=== PATIENT | female | born 1970 | race Caucasian/White ===

== ENCOUNTER 2019-07-18 00:11 | Emergency (ER) | payer BC ==
--- NOTE | 2019-07-18 00:38 | EDM.PDOC ---
ED HPI GENERAL MEDICAL PROBLEM - General Chief Complaint: General Stated Complaint: NECK AND SHOULDER PAIN Time Seen by Provider: 07/18/19 00:28 - History of Present Illness INITIAL COMMENTS - FREE TEXT/NARRATIVE: 48-year-old female presents to the emergency room with neck and shoulder pain. Patient is a neck surgery 2 level fusion and left shoulder surgery in the past. Over the last week and a half or so she is developed significant muscle tightness between her left shoulder and her neck. This is causing her quite a bit of difficulty. At times she gets some nausea with this and is even has some intermittent dizziness. She does have a history of benign positional vertigo. Patient has not had any fevers or chills she has had no pain extending down into her arms. Patient denies any other complaints at this time she has no cough congestion or fever. Left Shoulder Pain Score (Numeric/FACES): 10 - Related Data Allergies Allergy/AdvReac Type Severity Reaction Status Date / Time codeine Allergy Severe Cannot Verified 07/18/19 00:30 Remember metronidazole [From Flagyl] Allergy Severe Cannot Verified 07/18/19 00:30 Remember naproxen Allergy Severe Cannot Verified 07/18/19 00:30 Remember Home Meds: Home Meds Ascorbic Acid [Vitamin C] 1 tab PO DAILY 07/18/19 [History] Cholecalciferol (Vitamin D3) [Vitamin D] 1 tab PO DAILY 07/18/19 [History] L.acidoph,Paracasei, B.lactis [Probiotic] 1 each PO DAILY 07/18/19 [History] Multivitamins [Tab-A-Clare] 1 tab PO DAILY 07/18/19 [History] [place]-3/DHA/Epa/Fish Oil [[place] 3 500 Softgel] 1 tab PO DAILY 07/18/19 [History] Ondansetron [Zofran ODT] 4 mg PO Q6H PRN #12 tab.dis 07/18/19 [Rx] ED ROS GENERAL - Review of Systems Review Of Systems: See Below Constitutional: Reports: No Symptoms HEENT: Reports: No Symptoms Respiratory: Reports: No Symptoms Cardiovascular: Reports: No Symptoms GI/Abdominal: Reports: Nausea. Denies: Abdominal Pain, Constipation, Diarrhea, Vomiting : Reports: No Symptoms Musculoskeletal: Reports: No Symptoms Skin: Reports: No Symptoms Neurological: Reports: No Symptoms Psychiatric: Reports: No Symptoms ED EXAM, GENERAL - Physical Exam Exam: See Below Exam Limited By: No Limitations General Appearance: Alert, No Apparent Distress Head: Atraumatic, Normocephalic Neck: Other (Has marked spasm in the musculature on the left side involving the left paraspinous muscles down the cervical neck and into the upper thoracic region she has tenderness around her shoulder blade and into her left shoulder. Palpation here elicits the symptoms that brought her in.). No: Lymphadenopathy (L), Lymphadenopathy (R), Tender Lateral, Tender Midline Respiratory/Chest: No Respiratory Distress, Lungs Clear, Normal Breath Sounds Cardiovascular: Regular Rate, Rhythm, No Edema, No Murmur GI/Abdominal: Normal Bowel Sounds, Soft, Non-Tender Back Exam: Normal Inspection. No: CVA Tenderness (L), CVA Tenderness (R) Course - Vital Signs Last Recorded V/S: Last Vital Signs Temp 36.7 C 07/18/19 00:23 Pulse 97 07/18/19 00:23 Resp 20 07/18/19 00:23 BP 143/86 H 07/18/19 00:23 Pulse Ox 100 07/18/19 00:23 - Orders/Labs/Meds Orders: Active Orders 24 hr Category Date Time Status EKG Documentation Completion [RC] STAT Care 07/18/19 00:45 Active Chest 1V Frontal [CR] Stat Exams 07/18/19 00:45 Taken Labs: Laboratory Tests 07/18/19 07/18/19 07/18/19 Range/Units 01:05 01:05 01:05 WBC 6.50 (3.98-10.04) K/mm3 RBC 4.61 (3.98-5.22) M/mm3 Hgb 13.6 (11.2-15.7) gm/dl Hct 42.1 (34.1-44.9) % MCV 91.3 (79.4-94.8) fl MCH 29.5 (25.6-32.2) pg MCHC 32.3 (32.2-35.5) g/dl RDW Std Deviation 44.5 (36.4-46.3) fL Plt Count 181 L (182-369) K/mm3 MPV 13.0 H (9.4-12.3) fl Neutrophils % (Manual) 39 L (40-60) % Band Neutrophils % 2 (0-10) % Lymphocytes % (Manual) 46 H (20-40) % Atypical Lymphs % 6 % Monocytes % (Manual) 7 (2-10) % Eosinophils % (Manual) 0 L (0.7-5.8) % Basophils % (Manual) 0 L (0.1-1.2) Platelet Estimate Adequate Plt Morphology Comment Normal RBC Morph Comment Normal PT 10.0 (9.7-12.0) SECONDS INR < 0.93 APTT 25 (22-31) SECONDS D-Dimer, Quantitative 0.19 (0.19-0.50) mg/L Troponin I < 0.017 (0.00-0.056) ng/mL Lipase 97 (73-393) U/L Meds: Medications Discontinued Medications Generic Name Dose Route Start Last Admin Trade Name Freq PRN Reason Stop Dose Admin Ondansetron HCl 4 mg 07/18/19 00:47 07/18/19 01:12 Zofran IVPUSH 07/18/19 00:48 Not Given ONETIME ONE Ondansetron HCl 4 mg 07/18/19 01:06 07/18/19 01:15 Zofran Odt PO 07/18/19 01:07 4 mg ONETIME ONE Administration - Re-Assessments/Exams Free Text/Narrative Re-Assessment/Exam: 07/18/19 04:42 She was actually able to get some sleep here that her nausea was relieved with Zofran. Her d-dimer and troponin were negative. Discussed the findings of everything with the patient she does not tolerate muscle relaxants and is leery of taking anything sedating. She does not tolerate naproxen however she does okay with ibuprofen she has a history of using excessive ibuprofen in the past and this caused some stomach upset. But she will use some [id number] ibuprofen to help her neck tightness and discomfort as well as her shoulder tightness and discomfort. She will use famotidine, or Pepcid 20 mg twice daily while on the ibuprofen. Departure - Departure Time of Disposition: 04:43 Disposition: Home, Self-Care 01 Clinical Impression: Torticollis - Discharge Information Prescriptions: Ondansetron [Zofran ODT] 4 mg PO Q6H PRN #12 tab.dis PRN Reason: Nausea Instructions: Acute Torticollis, Adult Referrals: Rafaela Bonilla MD [Primary Care Provider] - Forms: ED Department Discharge Additional Instructions: Return to the emergency room with any questions problems or worsening symptoms. Follow-up with your regular provider in 1 week if needed. 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 These come in 20 mg tablets take 1 twice daily while taking the ibuprofen. You have been given a prescription for Zofran No. 12, 4 mg use 1 every 6 hours as needed for nausea and dizziness Sepsis Event Note - Evaluation Sepsis Screening Result: No Definite Risk - Focused Exam Vital Signs: Vital Signs Temp Pulse Resp BP Pulse Ox 07/18/19 00:23 36.7 C 97 20 143/86 H 100 Date Exam was Performed: 07/18/19 Time Exam was Performed: 05:01 - My Orders Last 24 Hours: My Active Orders 07/18/19 00:45 EKG Documentation Completion [RC] STAT Chest 1V Frontal [CR] Stat - Assessment/Plan Last 24 Hours: My Active Orders 07/18/19 00:45 EKG Documentation Completion [RC] STAT Chest 1V Frontal [CR] Stat
[2019-07-18] MEDS ORDERED: Ondansetron 4 MG/2 ML SDV IVPUSH ONE (00:47)
[2019-07-18] MEDS ORDERED: Ondansetron 4 MG Tab.DIS PO ONE (01:06)
--- NOTE | 2019-07-18 06:32 | CR ---
Chest: Portable view of the chest was obtained. Comparison: No prior chest imaging is available. Heart size and mediastinum are normal. Lungs are clear with no acute parenchymal change. Bony structures are grossly intact. Surgical clip is noted within the upper right abdomen. Impression: 1. Nothing acute is seen on portable chest x-ray. Diagnostic code #1 This report was dictated in MDT
== END 2019-07-18 05:03 | disposition home or self-care (01) ==
LOC: JD.ED 00:11
DX: M43.6 Torticollis (principal); Z88.5 Allergy status to narcotic agent; Z88.1 Allergy status to other antibiotic agents; Z88.6 Allergy status to analgesic agent
CPT/HCPCS: 36415; 71045; 83690; 84484; 85007; 85027; 85379; 85610; 85730; 93005; 99284; A9270; 93010; 99282

== ENCOUNTER 2019-08-08 12:30 | Emergency (ER) | payer BC ==
[2019-08-08] MEDS ORDERED: Sodium Chloride 0.9% 10 ML Syringe FLUSH PRN (12:58)
--- NOTE | 2019-08-08 13:26 | CR ---
Chest: 2 views of the chest were obtained. Comparison: Previous chest x-ray of 07/18/19. Heart size and mediastinum are normal. Lungs are clear with no acute parenchymal change. Bony structures are unremarkable. Surgical clips are seen from prior cholecystectomy. Partially visualized previous cervical spine surgery is also noted. Impression: 1. Nothing acute is seen on 2 view chest x-ray. Diagnostic code #2 This report was dictated in MDT
--- NOTE | 2019-08-08 14:09 | EDM.PDOC ---
ED HPI GENERAL MEDICAL PROBLEM - General Chief Complaint: Chest Pain Stated Complaint: CHEST PAIN, NAUSEA AND NECK PAIN COMES AND GOES Time Seen by Provider: 08/08/19 12:42 Source of Information: Reports: Patient History Limitations: Reports: No Limitations - History of Present Illness INITIAL COMMENTS - FREE TEXT/NARRATIVE: The patient presents with chest pain. This started a couple nights ago. She said about 2 weeks ago she was here for severe left neck pain. That is better but now she has the left chest pain. The pain is sharp and made worse by taking a deep breath. She has no fever, chills, cough, congestion, runny nose, abdominal pain, nausea or vomiting. She has no history of heart problems. She has no hypertension, hypercholesterolemia, or diabetes. She does not smoke. Onset: Sudden Duration: Day(s): (Yesterday) Location: Reports: Chest Quality: Reports: Sharp Severity: Severe Improves with: Reports: Immobilization Worsens with: Reports: Breathing, Movement Associated Symptoms: Reports: Chest Pain. Denies: Cough, Fever/Chills, Headaches, Nausea/Vomiting, Shortness of Breath Mid-Sternal Chest Pain Score (Numeric/FACES): 10 - Related Data Allergies Allergy/AdvReac Type Severity Reaction Status Date / Time codeine Allergy Severe Cannot Verified 08/08/19 12:39 Remember metronidazole [From Flagyl] Allergy Severe Cannot Verified 08/08/19 12:39 Remember naproxen Allergy Severe Cannot Verified 08/08/19 12:39 Remember Home Meds: Home Meds Ascorbic Acid [Vitamin C] 1 tab PO DAILY 07/18/19 [History] Cholecalciferol (Vitamin D3) [Vitamin D] 5,000 intnl unit PO DAILY 07/18/19 [History] L.acidoph,Paracasei, B.lactis [Probiotic] 1 each PO DAILY 07/18/19 [History] Multivitamins [Tab-A-Clare] 1 tab PO DAILY 07/18/19 [History] [place]-3/DHA/Epa/Fish Oil [[place] 3 500 Softgel] 1 tab PO DAILY 07/18/19 [History] Ondansetron [Zofran ODT] 4 mg PO Q6H PRN #12 tab.dis 07/18/19 [Rx] traMADol [Ultram] 50 - 100 mg PO Q6H PRN #20 tab 08/08/19 [Rx] Past Medical History HEENT History: Reports: Impaired Vision Other HEENT History: ready eyeglasses Respiratory History: Reports: Bronchitis, Recurrent Gastrointestinal History: Reports: Diverticulosis Genitourinary History: Reports: Pyelonephritis, UTI, Recurrent 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 - Infectious Disease History Infectious Disease History: Reports: Chicken Pox, Measles, Mumps - Past Surgical History HEENT Surgical History: Reports: LASIK GI Surgical History: Reports: Appendectomy, Cholecystectomy Musculoskeletal Surgical History: Reports: Shoulder Surgery, Other (See Below) Other Musculoskeletal Surgeries/Procedures:: neck surgery Social & Family History - Tobacco Use Smoking Status *Q: Never Smoker Second Hand Smoke Exposure: No - Caffeine Use Caffeine Use: Reports: Soda - Recreational Drug Use Recreational Drug Use: No ED ROS GENERAL - Review of Systems Review Of Systems: See Below Constitutional: Reports: No Symptoms HEENT: Reports: No Symptoms Respiratory: Reports: No Symptoms Cardiovascular: Reports: Chest Pain Endocrine: Reports: No Symptoms GI/Abdominal: Reports: No Symptoms, Mucous in Stool Musculoskeletal: Reports: No Symptoms ED EXAM, GENERAL - Physical Exam Exam: See Below Exam Limited By: No Limitations General Appearance: Alert, No Apparent Distress Ears: Normal External Exam Nose: Normal Inspection Head: Atraumatic, Normocephalic Neck: Normal Inspection, Supple, Non-Tender Respiratory/Chest: No Respiratory Distress, Lungs Clear, Normal Breath Sounds Cardiovascular: Regular Rate, Rhythm, No Edema, No Murmur GI/Abdominal: Soft, Non-Tender, No Organomegaly, No Mass Back Exam: Normal Inspection Extremities: Normal Inspection EKG INTERPRETATION EKG Date: 08/08/19 Time: 13:15 Rhythm: NSR Rate (Beats/Min): 84 [place]: Normal P-Wave: Present QRS: Normal ST-T: Normal QT: Normal Course - Vital Signs Last Recorded V/S: Last Vital Signs Temp 98.3 F 08/08/19 12:30 Pulse 98 08/08/19 12:30 Resp 20 08/08/19 12:30 BP 134/89 08/08/19 12:30 Pulse Ox 99 08/08/19 12:30 - Orders/Labs/Meds Orders: Active Orders 24 hr Category Date Time Status Cardiac Monitoring [RC] . DIRECTED Care 08/08/19 12:58 Active EKG Documentation Completion [RC] STAT Care 08/08/19 13:00 Active Peripheral IV Care [RC] . DIRECTED Care 08/08/19 13:00 Active Sodium Chloride 0.9% [Saline Flush] Med 08/08/19 12:58 Active 10 ml FLUSH ASDIRECTED PRN Peripheral IV Insertion Adult [OM.PC] Stat Oth 08/08/19 12:58 Ordered Medication Orders Sodium Chloride (Saline Flush) 10 ml FLUSH ASDIRECTED PRN PRN Reason: Keep Vein Open Last Admin: 08/08/19 12:40 Dose: 10 ml Documented by: CHRIS Labs: Laboratory Tests 08/08/19 08/08/19 08/08/19 Range/Units 12:40 12:40 12:40 WBC 8.58 (3.98-10.04) K/mm3 RBC 4.83 (3.98-5.22) M/mm3 Hgb 14.5 (11.2-15.7) gm/dl Hct 44.0 (34.1-44.9) % MCV 91.1 (79.4-94.8) fl MCH 30.0 (25.6-32.2) pg MCHC 33.0 (32.2-35.5) g/dl RDW Std Deviation 42.1 (36.4-46.3) fL Plt Count 159 L (182-369) K/mm3 MPV 12.6 H (9.4-12.3) fl Neut % (Auto) 62.4 (34.0-71.1) % Lymph % (Auto) 28.1 (19.3-51.7) % [place] % (Auto) 8.4 (4.7-12.5) % Eos % (Auto) 0.8 (0.7-5.8) Baso % (Auto) 0.2 (0.1-1.2) % Neut # (Auto) 5.35 (1.56-6.13) K/mm3 Lymph # (Auto) 2.41 (1.18-3.74) K/mm3 [place] # (Auto) 0.72 H (0.24-0.36) K/mm3 Eos # (Auto) 0.07 (0.04-0.36) K/mm3 Baso # (Auto) 0.02 (0.01-0.08) K/mm3 D-Dimer, Quantitative 0.27 (0.19-0.50) mg/L Sodium 139 (136-145) mEq/L Potassium 3.8 (3.5-5.1) mEq/L Chloride 103 (98-107) mEq/L Carbon Dioxide 28 (21-32) mEq/L Anion Gap 11.8 (5-15) BUN 11 (7-18) mg/dL Creatinine 0.8 (0.55-1.02) mg/dL Est Cr Clr Drug Dosing 84.87 mL/min Estimated GFR (MDRD) > 60 (>60) mL/min BUN/Creatinine Ratio 13.8 L (14-18) Glucose 90 (74-106) mg/dL Calcium 10.7 H (8.5-10.1) mg/dL Total Bilirubin 0.6 (0.2-1.0) mg/dL AST 17 (15-37) U/L ALT 28 (14-59) U/L Alkaline Phosphatase 102 (46-116) U/L Troponin I < 0.017 (0.00-0.056) ng/mL Total Protein 8.2 (6.4-8.2) g/dl Albumin 4.5 (3.4-5.0) g/dl Globulin 3.7 gm/dL Albumin/Globulin Ratio 1.2 (1-2) Meds: Medications Generic Name Dose Route Start Last Admin Trade Name Freq PRN Reason Stop Dose Admin Sodium Chloride 10 ml 08/08/19 12:58 08/08/19 12:40 Saline Flush FLUSH 10 ml ASDIRECTED PRN Administration Keep Vein Open - Re-Assessments/Exams Free Text/Narrative Re-Assessment/Exam: 08/08/19 14:08 I ordered an IV saline lock, EKG, CXR and labs. Her EKG shows a NSR with no acute changes. Her CXR looks good. Her CBC and CMP look good. Her troponin is negative. 08/08/19 14:21 I feel this is pleurisy. I will have her take advil and I will give her some ultram for any breath through pain. Departure - Departure Time of Disposition: 14:30 Disposition: Home, Self-Care 01 Condition: Good Clinical Impression: Pleurisy Prescriptions: traMADol [Ultram] 50 - 100 mg PO Q6H PRN #20 tab PRN Reason: Pain Referrals: Rafaela Bonilla MD [Primary Care Provider] - 1 Week Forms: ED Department Discharge Additional Instructions: Take advil every 6 hours as needed for pain. Take the ultram as needed for pain. Follow up with Dr Ray. Please return if you are worse. Sepsis Event Note (ED) - Evaluation Sepsis Screening Result: No Definite Risk - Focused Exam Vital Signs: Vital Signs Temp Pulse Resp BP Pulse Ox 08/08/19 12:30 98.3 F 98 20 134/89 99 - My Orders Last 24 Hours: My Active Orders 08/08/19 12:58 Cardiac Monitoring [RC] . DIRECTED Sodium Chloride 0.9% [Saline Flush] 10 ml FLUSH ASDIRECTED PRN Peripheral IV Insertion Adult [OM.PC] Stat 08/08/19 13:00 EKG Documentation Completion [RC] STAT Peripheral IV Care [RC] . DIRECTED - Assessment/Plan Last 24 Hours: My Active Orders 08/08/19 12:58 Cardiac Monitoring [RC] . DIRECTED Sodium Chloride 0.9% [Saline Flush] 10 ml FLUSH ASDIRECTED PRN Peripheral IV Insertion Adult [OM.PC] Stat 08/08/19 13:00 EKG Documentation Completion [RC] STAT Peripheral IV Care [RC] . DIRECTED
== END 2019-08-08 15:00 | disposition home or self-care (01) ==
LOC: JD.ED 12:30
DX: R09.1 Pleurisy (principal); Z88.5 Allergy status to narcotic agent; Z88.8 Allergy status to other drugs, medicaments and biological substances
CPT/HCPCS: 36415; 71046; 71046-26; 80053; 84484; 85025; 85379; 93005; 93010; 99283; 99285-25

== ENCOUNTER 2019-08-25 11:12 | Emergency (ER) | payer BC ==
[2019-08-25] MEDS ORDERED: Sodium Chloride 0.9% 10 ML Syringe FLUSH PRN (11:30)
--- NOTE | 2019-08-25 12:11 | CT ---
CT chest Technique: Multiple axial sections through the chest were obtained. Intravenous contrast was utilized. Study has been performed as a pulmonary angiogram protocol. Comparison: Prior chest x-ray of 08/08/19, no previous chest CT is available. Findings: Cyst noted within the right lobe of the liver measuring about 2.0 cm. Other visualized upper abdominal structures shows no discrete abnormality. No pericardial thickening is seen. Minimal coronary artery calcification is noted. Aorta shows no aneurysm. No aortic dissection is seen. Pulmonary arteries are well opacified. No filling defects are seen to indicate pulmonary embolism. Mediastinum and hilar region show no adenopathy. No axillary adenopathy is seen. Bone window settings were reviewed. No acute osseous finding is appreciated. Prior cervical spine surgery is partially visualized. Lungs show no acute parenchymal change. No pleural effusions are seen. Impression: 1. No findings of pulmonary embolism. 2. Other findings which are nonacute as described above. Diagnostic code #2 This report was dictated in MDT
--- NOTE | 2019-08-25 12:40 | EDM.PDOC ---
ED HPI GENERAL MEDICAL PROBLEM - General Chief Complaint: Neck Problem Stated Complaint: NECK AND SHOULDER PAIN/ PAIN WHILE BREATHING Time Seen by Provider: 08/25/19 11:23 Source of Information: Reports: Patient History Limitations: Reports: No Limitations - History of Present Illness INITIAL COMMENTS - FREE TEXT/NARRATIVE: The patient presents with left neck, chest and shoulder pain. This has been an ongoing problems for a few months. This is her 3rd visit here. She was put on prednisone at one time for pleurisy. She developed diverticulitis after that and was on antibiotics. She has been to PT and that did help but the pain is back again. She has no fever, chills or cough. She has no numbness or weakness. She has no abdominal pain, nausea or vomiting. She has no history of heart disease. Onset: Gradual Duration: Hour(s): Location: Reports: Neck, Chest, Upper Extremity, Left (shoulder) Quality: Reports: Sharp Severity: Moderate Improves with: Reports: None Worsens with: Reports: None Associated Symptoms: Reports: Chest Pain. Denies: Cough, Fever/Chills, Headaches, Nausea/Vomiting, Shortness of Breath Left Neck Pain Score (Numeric/FACES): 7 - Related Data Allergies Allergy/AdvReac Type Severity Reaction Status Date / Time codeine Allergy Severe Cannot Verified 08/08/19 12:39 Remember metronidazole [From Flagyl] Allergy Severe Cannot Verified 08/08/19 12:39 Remember naproxen Allergy Severe Cannot Verified 08/08/19 12:39 Remember Home Meds: Home Meds Ascorbic Acid [Vitamin C] 1 tab PO DAILY 07/18/19 [History] Cholecalciferol (Vitamin D3) [Vitamin D] 5,000 intnl unit PO DAILY 07/18/19 [History] L.acidoph,Paracasei, B.lactis [Probiotic] 1 each PO DAILY 07/18/19 [History] Multivitamins [Tab-A-Clare] 1 tab PO DAILY 07/18/19 [History] [place]-3/DHA/Epa/Fish Oil [[place] 3 500 Softgel] 1 tab PO DAILY 07/18/19 [History] Ondansetron [Zofran ODT] 4 mg PO Q6H PRN #12 tab.dis 07/18/19 [Rx] predniSONE [Prednisone] 40 mg PO DAILY #10 tablet 08/08/19 [Rx] traMADol [Ultram] 50 - 100 mg PO Q6H PRN #20 tab 08/08/19 [Rx] Past Medical History HEENT History: Reports: Impaired Vision Other HEENT History: ready eyeglasses Respiratory History: Reports: Bronchitis, Recurrent Gastrointestinal History: Reports: Diverticulosis Genitourinary History: Reports: Pyelonephritis, UTI, Recurrent [employer] 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 - Infectious Disease History Infectious Disease History: Reports: Chicken Pox, Measles, Mumps - Past Surgical History HEENT Surgical History: Reports: LASIK GI Surgical History: Reports: Appendectomy, Cholecystectomy Musculoskeletal Surgical History: Reports: Shoulder Surgery, Other (See Below) Other Musculoskeletal Surgeries/Procedures:: neck surgery Social & Family History - Family History Family Medical History: Noncontributory - Tobacco Use Smoking Status *Q: Never Smoker Second Hand Smoke Exposure: No - Caffeine Use Caffeine Use: Reports: Soda ED ROS GENERAL - Review of Systems Review Of Systems: See Below Constitutional: Reports: No Symptoms HEENT: Reports: No Symptoms Respiratory: Reports: No Symptoms Cardiovascular: Reports: Chest Pain Endocrine: Reports: No Symptoms GI/Abdominal: Reports: No Symptoms : Reports: No Symptoms Musculoskeletal: Reports: Neck Pain Skin: Reports: No Symptoms ED EXAM, UPPER BACK/NECK PAIN - Physical Exam Exam: See Below Exam Limited By: No Limitations General Appearance: Alert, No Apparent Distress Ears Exam: Normal External Exam Nose Exam: Normal Inspection Head Exam: Atraumatic, Normocephalic Neck Exam: Other (Mild pain upon palpation to the left trapezious) Cardiovascular/Respiratory: Regular Rate, Rhythm, No M/R/G, Normal Peripheral Pulses, No JVD GI/Abdominal: Soft, Non-Tender, No Organomegaly, No Mass Back Exam: Normal Inspection Extremities: Normal Inspection Neurologic: No Motor/Sensory Deficits, Alert, Oriented x 3 EKG INTERPRETATION EKG Date: 08/25/19 Time: 11:58 Rhythm: NSR Rate (Beats/Min): 81 Bison: Normal P-Wave: Present QRS: Normal ST-T: Normal QT: Normal Course - Vital Signs Last Recorded V/S: Last Vital Signs Temp 96.9 F 08/25/19 11:23 Pulse 103 H 08/25/19 11:23 Resp 16 08/25/19 11:23 BP 137/88 08/25/19 11:23 Pulse Ox 100 08/25/19 11:23 - Orders/Labs/Meds Orders: Active Orders 24 hr Category Date Time Status Cardiac Monitoring [RC] . DIRECTED Care 08/25/19 11:30 Active EKG Documentation Completion [RC] STAT Care 08/25/19 11:30 Active Peripheral IV Care [RC] . DIRECTED Care 08/25/19 11:31 Active SEDIMENTATION RATE AUTO [HEME] Stat Lab 08/25/19 11:45 Received Sodium Chloride 0.9% [Saline Flush] Med 08/25/19 11:30 Active 10 ml FLUSH ASDIRECTED PRN Peripheral IV Insertion Adult [OM.PC] Stat Oth 08/25/19 11:30 Ordered Medication Orders Sodium Chloride (Saline Flush) 10 ml FLUSH ASDIRECTED PRN PRN Reason: Keep Vein Open Last Admin: 08/25/19 12:13 Dose: 10 ml Documented by: GIFTY Labs: Laboratory Tests 08/25/19 08/25/19 Range/Units 11:45 11:45 WBC 9.14 (3.98-10.04) K/mm3 RBC 4.59 (3.98-5.22) M/mm3 Hgb 13.7 (11.2-15.7) gm/dl Hct 41.9 (34.1-44.9) % MCV 91.3 (79.4-94.8) fl MCH 29.8 (25.6-32.2) pg MCHC 32.7 (32.2-35.5) g/dl RDW Std Deviation 42.0 (36.4-46.3) fL Plt Count 203 (182-369) K/mm3 MPV 12.2 (9.4-12.3) fl Neut % (Auto) 71.2 H (34.0-71.1) % Lymph % (Auto) 18.2 L (19.3-51.7) % [place] % (Auto) 9.1 (4.7-12.5) % Eos % (Auto) 1.1 (0.7-5.8) Baso % (Auto) 0.2 (0.1-1.2) % Neut # (Auto) 6.51 H (1.56-6.13) K/mm3 Lymph # (Auto) 1.66 (1.18-3.74) K/mm3 [place] # (Auto) 0.83 H (0.24-0.36) K/mm3 Eos # (Auto) 0.10 (0.04-0.36) K/mm3 Baso # (Auto) 0.02 (0.01-0.08) K/mm3 Manual Slide Review Not Reportable Sodium 140 (136-145) mEq/L Potassium 3.8 (3.5-5.1) mEq/L Chloride 102 (98-107) mEq/L Carbon Dioxide 28 (21-32) mEq/L Anion Gap 13.8 (5-15) BUN 9 (7-18) mg/dL Creatinine 0.8 (0.55-1.02) mg/dL Est Cr Clr Drug Dosing 84.87 mL/min Estimated GFR (MDRD) > 60 (>60) mL/min BUN/Creatinine Ratio 11.3 L (14-18) Glucose 111 H (74-106) mg/dL Calcium 9.1 D (8.5-10.1) mg/dL Total Bilirubin 0.3 (0.2-1.0) mg/dL AST 20 (15-37) U/L ALT 38 (14-59) U/L Alkaline Phosphatase 86 (46-116) U/L Troponin I < 0.017 (0.00-0.056) ng/mL C-Reactive Protein 2.1 H* (<1.0) mg/dL Total Protein 7.7 (6.4-8.2) g/dl Albumin 3.6 (3.4-5.0) g/dl Globulin 4.1 gm/dL Albumin/Globulin Ratio 0.9 L (1-2) Meds: Medications Generic Name Dose Route Start Last Admin Trade Name Freq PRN Reason Stop Dose Admin Sodium Chloride 10 ml 08/25/19 11:30 08/25/19 12:13 Saline Flush FLUSH 10 ml ASDIRECTED PRN Administration Keep Vein Open - Re-Assessments/Exams Free Text/Narrative Re-Assessment/Exam: 08/25/19 13:10 I ordered an IV saline lock, EKG, labs and a CT of her chest. Her EKG shows a NSR with no acute changes. Her CBC and CMP look good. Her troponin is negative. Her CT shows no findings of pulmonary embolism. Other findings which are nonacute. At this time it is not clear why she is having the pain. Her heart and lungs look good. I wonder if this is coming from her cervical spine She does have some tingling and numbness in her left arm at times. I will put in an order for an MRI or her cervical spine. Departure - Departure Time of Disposition: 13:15 Disposition: Home, Self-Care 01 Condition: Good Clinical Impression: Atypical chest pain, Neck pain Shoulder pain Qualifiers: Chronicity: acute Laterality: left Qualified Code(s): M25.512 - Pain in left shoulder - Discharge Information *PRESCRIPTION DRUG MONITORING PROGRAM REVIEWED*: Not Applicable *COPY OF PRESCRIPTION DRUG MONITORING REPORT IN PATIENT GUERRERO: Not Applicable Referrals: Rafaela Bonilla MD [Primary Care Provider] - 1 Week Forms: ED Department Discharge Additional Instructions: Take the ultram as needed for pain. I have put an order in for an MRI of your cervical spine. Someone from our radiology department will call you. Follow up with your doctor. Please return if you are worse. Sepsis Event Note (ED) - Evaluation Sepsis Screening Result: No Definite Risk - Focused Exam Vital Signs: Vital Signs Temp Pulse Resp BP Pulse Ox 08/25/19 11:23 96.9 F 103 H 16 137/88 100 - My Orders Last 24 Hours: My Active Orders 08/25/19 11:30 Cardiac Monitoring [RC] . DIRECTED EKG Documentation Completion [RC] STAT Sodium Chloride 0.9% [Saline Flush] 10 ml FLUSH ASDIRECTED PRN Peripheral IV Insertion Adult [OM.PC] Stat 08/25/19 11:31 Peripheral IV Care [RC] . DIRECTED 08/25/19 11:45 SEDIMENTATION RATE AUTO [HEME] Stat - Assessment/Plan Last 24 Hours: My Active Orders 08/25/19 11:30 Cardiac Monitoring [RC] . DIRECTED EKG Documentation Completion [RC] STAT Sodium Chloride 0.9% [Saline Flush] 10 ml FLUSH ASDIRECTED PRN Peripheral IV Insertion Adult [OM.PC] Stat 08/25/19 11:31 Peripheral IV Care [RC] . DIRECTED 08/25/19 11:45 SEDIMENTATION RATE AUTO [HEME] Stat
[2019-08-25] MEDS ORDERED: Sodium Chloride 0.9% 10 ML Syringe FLUSH ONE (13:25)
[2019-08-25] MEDS ORDERED: Iopamidol 755 Mg/ML 100 ML Bottle IVPUSH ONE (13:25)
[2019-08-25] MEDS ORDERED: Sodium Chloride 0.9% 100 ML IV SCH (13:30)
== END 2019-08-25 13:38 | disposition home or self-care (01) ==
LOC: JD.ED 11:12
DX: M25.512 Pain in left shoulder (principal); R07.89 Other chest pain; M54.2 Cervicalgia; Z88.5 Allergy status to narcotic agent; Z88.8 Allergy status to other drugs, medicaments and biological substances; Z79.899 Other long term (current) drug therapy
CPT/HCPCS: 36415; 71275; 80053; 84484; 85025; 85652; 86140; 93005; 99285; J7050; Q9967